=== PATIENT | female | born 1965 | race Caucasian/White ===

== ENCOUNTER 2017-06-20 14:06 | Outpatient (CLI) | payer BC, OTHER ==
--- NOTE | 2017-06-20 15:48 | XRAY Report ---
TWO VIEW LUMBAR SPINE: 06/20/2017 CLINICAL INDICATION: Right foot numbness. FINDINGS: Frontal and lateral views of the lumbar spine demonstrate minimal degenerative disk diseas e. There is no evidence of fracture or subluxation. The bowel gas pattern is unremarkable. IMPRESSION: MINIMAL DEGENERATIVE DISK DISEASE. JOB #: [id number] EXT JOB #:[id number]
== END 2017-06-20 14:07 | disposition home or self-care (01) ==
LOC: DI 14:06
PROVIDERS: ATTEND Family Medicine
DX: R20.0 Anesthesia of skin (principal); M51.36 Other intervertebral disc degeneration, lumbar region
CPT/HCPCS: 72100

== ENCOUNTER 2017-08-06 15:26 | Outpatient (CLI) | payer BC, OTHER | END 2017-08-06 15:27 | disposition home or self-care (01) | LOC: SC 15:26 | PROVIDERS: ATTEND Internal Medicine Pulmonary Disease | DX: R53.83 Other fatigue (principal); R51 Headache | CPT/HCPCS: 99203; 99212 ==

== ENCOUNTER 2018-01-21 15:22 | Outpatient (CLI) | payer BC, OTHER | END 2018-01-21 15:23 | disposition home or self-care (01) | LOC: SC 15:22 | PROVIDERS: ATTEND Internal Medicine Pulmonary Disease | DX: G47.33 Obstructive sleep apnea (adult) (pediatric) (principal) | CPT/HCPCS: 99212; 99213 ==

== ENCOUNTER 2020-02-02 16:43 | Outpatient (CLI) | payer BC, OTHER | END 2020-02-02 16:44 | disposition home or self-care (01) | LOC: COV 16:43 | PROVIDERS: ATTEND Family Medicine | DX: R05 Cough (principal); R50.9 Fever, unspecified | CPT/HCPCS: 81599 ==